=== PATIENT | female | born 1985 | race Caucasian/White ===

== ENCOUNTER 2018-03-28 04:08 | Inpatient (IN) | payer OTHER ==
[~2018-03-28] VITALS: Ht 157.5 cm; Wt 79.4 kg
[2018-03-28] VITALS (42 sets, daily range): BP systolic 92–220; BP diastolic 47–141
--- NOTE | 2018-03-28 04:20 | NUR ---
Pt to room 318. Gown on, UA obtained. 0427- Monitors applied. VE done. 8cm/100%/-1. FHT's 125, ctx, 2 min apart. 0438-IV started, pt states she is feeling like she needs to push. VE complete-BP 220/141, P 74. 0442-Dr. Howard here. Pt in stirrups and ready to push. FHT's 70-90's. 0445-pt pushing with ctx. FHT's 100's 0450-FHT's 100's. 0456-viable female born per spontaneous vaginal deliver. To mother's chest. See notes. 0458-Pitocin started 0557-placenta delivered. sent to pathology. 0559-Fentanyl 50mcg given IV for pain
[2018-03-28] MEDS ORDERED: LACTATED RINGERS 1,000 ML IV ONE (04:28)
[2018-03-28] MEDS ORDERED: D5 LR IV SOLUTION 1,000 ML IV SCH ×2 (04:37→08:48)
[2018-03-28] MEDS ORDERED: MINERAL OIL CONCENTRATE 99.9% 15 ML UDC TOP PRN (04:45)
[2018-03-28] MEDS ORDERED: OXYTOCIN/NORMAL SALINE 500 ML IV ONE ×3 (04:54→08:35)
[2018-03-28] MEDS ORDERED: LIDOCAINE/EPI 2% 1:200,00 (XYLOCAINE) 10 ML VIAL ONE (04:55)
[2018-03-28] MEDS ORDERED: fentaNYL INJECTION 100 MCG/2 ML AMP ONE ×2 (05:05→09:49)
--- NOTE | 2018-03-28 05:15 | NUR ---
Fundal massage done. Firm at umbilicus. Moderate amount of bleeding noted. No clots 0530-Fundas massaged. Firm. 0545-fundal massage done. Firm at umbilicus. Moderate amount of bleeding. No clots noted. 0600-Pt doing well. No complaints of pain. Fundus firm at umbilicus. 0620-Moderate amount of blood. No clots. Luz care done and pads changed. Fundus firm with massage 0650-Fundus firm. Bleeding slowed down.
[2018-03-28] MEDS ORDERED: CATHETER FLUSH 10 ML SYR IV SCH (06:00)
--- NOTE | 2018-03-28 06:21 | History & Physical-OB ---
OB - Chief Complaint & HPI Date/Time Date of Admission: Date of Admission: Mar 28, 2018 at 04:08 Date seen by a Provider: Mar 28, 2018 Time Seen by a Provider: 05:15 Chief Complaint/History OB-Reason for Admission/Chief: Onset of Labor Hx : 1 Hx Para: 0 Gestational Age in Weeks: 30 Gestational Age in Days: 0 Indication for induction: maternal distance Allergies and Home Medications Allergies Coded Allergies: No Known Drug Allergies (Unverified , 03/28/18) Patient Home Medication List Home Medication List Reviewed: Yes OB - History Hx of Present Care: Yes Ultrasounds: Normal mid trimester US Obstetrical Complications: None Medical Complications: None Patient Past Medical History healthy OB - Admission Exam Physical Exam HEENT: NCAT Heart: Rhythm Normal Lungs: Clear Abdomen: Gravid Extremities: Normal Reflexes: Normal Cervical Dilatation: 10cm Effacement: 100% Station: +3 Membranes: Intact Amniotic Fluid: Clear Heart Rate: 130's Accelerations: Accelerations Present Decelerations: Variable Decelerations Short Term Variability: Present Jail Variability: Average (6-25) Contractions on Admission: < 5 Minutes Apart Intensity: Firm OB - Assessment/Plan/Diagnosis Assessment Assessment: active labor Admission Dx normal labor Admission Status: Inpatient Order (span 2 midnights) Reason for Inpatient Admission: Active labor Plan Plan: Expectant Management Copy Copies To 1: CANDI PAUL MD; TAJ MORIN KATRINA M MD Mar 28, 2018 06:21
--- NOTE | 2018-03-28 06:24 | OB Labor & Delivery Record ---
Vag Delivery Note Vag Delivery Note Date of Delivery: 03/28/18 Preoperative Diagnosis: Alexus lui a (30 /Para / ,Gestational Age (wks)with [] Postoperative Diagnosis: Same Surgeon: CANDI PAUL Powerhouse Helper: [none] Anesthesia: [none] Delivery Type: [] Findings: [] Viable [famale] , apgars [9/9], weight [6 pounds 2 ounces] Lacerations: 2nd degree perineal episiotomy Intact placenta with 3 vessel cord. One nuchal cord. Estimated Blood Loss: [250] ml Complications: None Condition: Stable Description of Procedure: The patient is a 32 year old female who presented [for induction]. She was admitted and informed consent was obtained. Her labor course was remarkable for [being in active labor on arrival] She progressed to complete dilatation and began to push. She was then set up for delivery. The 's head was delivered atraumatically in the [OA] position. The shoulders and remainder of the infant' s body were then delivered without difficulty. Upon delivery, the head was held below the level of the perineum and the mouth and nares were bulb suctioned. The cord was doubly clamped and cut and the was placed on maternal abdomen. An intact placenta with 3-vessel cord delivered via David and there was found to be minimal bleeding.~ Vigorous fundal massage was performed and the fundus was found to be firm. IV oxytocin was given. Examination of the vagina and perineum revealed a [2nd degree] laceration repaired in the usual fashion with 3-0 vicryl suture. Following the repair, sponge, instrument and needle counts were correct. Mom and baby were both in stable condition in the labor suite. CANDI PAUL MD Mar 28, 2018 06:24
--- NOTE | 2018-03-28 07:15 | NUR ---
Report given to Estella SHEPHERD
--- NOTE | 2018-03-28 07:30 | NUR ---
To room with JOAO Ferrari. Fundus massaged. large amount of blood noted and constant trickle. Fundus firm at umbilicus. Egg size clot expressed. Continue to massage. Pt c/o nausea and blurry vision.
[2018-03-28 07:37] LABS: BASOPHILS % (AUTO) 0 % (0-10); EOSINOPHILS % (AUTO) 0 % (0-10); HEMATOCRIT 39 % (35-52); HEMOGLOBIN 12.8 G/DL (11.5-16.0); LYMPHOCYTES # (AUTO) 1.1 X 10^3 (1.0-4.0); LYMPHOCYTES % (AUTO) 5 % (12-44); MEAN CORPUSCULAR HEMOGLOBIN 27 PG (25-34); MEAN CORPUSCULAR HGB CONC 33 G/DL (32-36); MEAN CORPUSCULAR VOLUME 82 FL (80-99); MEAN PLATELET VOLUME 12.1 FL (7.4-10.4); MONOCYTES # (AUTO) 0.8 X 10^3 (0.0-1.0); MONOCYTES % (AUTO) 4 % (0-12); NEUTROPHILS # (AUTO) 20.5 X 10^3 (1.8-7.8); NEUTROPHILS % (AUTO) 91 % (42-75); PLATELET COUNT 189 10^3/uL (130-400); RED CELL DISTRIBUTION WIDTH 14.7 % (10.0-14.5); WHITE BLOOD COUNT 22.5 10^3/uL (4.3-11.0)
--- NOTE | 2018-03-28 07:42 | NUR ---
THIS RN CALLS DR MORIN WITH UPDATE PT REPORT. PT BP HIGH DURING RECOVERY. 190/106 , 189/108, 197/105. BPs HAVE BEEN IN THIS RANGE ENTIRE RECOVERY. PT CO BLURRED VISION AND NAUSEA. DR MORIN ASKED IF PT WAS IN PAIN. PT NOT IN PAIN OTHER THAN WHEN RN MASSAGES FUNDUS OCCASIONALLY. DR MORIN ORDERS TO DRAW LABS & GIVE 25 FENT
[2018-03-28] MEDS ORDERED: fentaNYL INJECTION 100 MCG/2 ML AMP IVP PRN (07:45)
--- NOTE | 2018-03-28 08:01 | NUR ---
DR MORIN AT BEDSIDE AT THIS TIME. THIS RN UPDATES DR MORIN ON PT BLEEDING, BP, S/S, LABS JUST DRAWN AND FENTANYL GIVEN ABOUT 3-4 MIN AGO. ORDERS PELVIC ULTRASOUND. MAY TAKE PT FOR POSSIBLE D&C FOR RETAINED PLACENTA. THIS RN SHOWS DR MORIN BLEEDING AND CLOT/S.
[2018-03-28 08:10] LABS: BASOPHILS % (AUTO) 0 % (0-10); EOSINOPHILS % (AUTO) 0 % (0-10); HEMATOCRIT 36 % (35-52); LYMPHOCYTES # (AUTO) 1.6 X 10^3 (1.0-4.0); LYMPHOCYTES % (AUTO) 7 % (12-44); MEAN CORPUSCULAR HEMOGLOBIN 27 PG (25-34); MEAN CORPUSCULAR HGB CONC 33 G/DL (32-36); MEAN CORPUSCULAR VOLUME 81 FL (80-99); MEAN PLATELET VOLUME 11.1 FL (7.4-10.4); MONOCYTES # (AUTO) 1.3 X 10^3 (0.0-1.0); MONOCYTES % (AUTO) 6 % (0-12); NEUTROPHILS # (AUTO) 18.7 X 10^3 (1.8-7.8); NEUTROPHILS % (AUTO) 87 % (42-75); PLATELET COUNT 184 10^3/uL (130-400); RED CELL DISTRIBUTION WIDTH 14.5 % (10.0-14.5); WHITE BLOOD COUNT 21.6 10^3/uL (4.3-11.0)
--- NOTE | 2018-03-28 08:13 | Progress Note-Standard ---
Standard Progress Note Progress Notes/Assess & Plan Date Seen by a Provider: Mar 28, 2018 Time Seen by a Provider: 08:05 Progress/Assessment & Plan I was called to see Ms. Haley for elevated blood pressure and blurred vision. Ms. Haley delivered early today, seeming unremarkable, but there was a question about some difficulty with placenta delivery. Upon seeing Ms. Haley, her blood pressure remained elevated, some moderate bleeding continued. I will check a CMP, CBC, and Uric Acid. Also, I ordered a pelvic ultrasound to ascertain if there are any products of conception or retained placenta within the uterine cavity. She was given Fentanyl for pain control and possibly lowering blood pressure. If the uterus isn't completely evacuated, we will perform a D & C. Dr. Domingo Final Diagnosis IUP at 39 weeks Vaginal Delivery Elevated Blood Pressure Blurred Vision TAJ DOMINGO DO Mar 28, 2018 08:13
[2018-03-28] MEDS ORDERED: WITCH HAZEL(TUCKS) 40 EA JAR TOP PRN (08:15)
[2018-03-28] MEDS ORDERED: TETANUS,DIPTH,PERTUSS P/F (BOOSTRIX) 0.5 ML VIAL IM ONE (08:15)
[2018-03-28] MEDS ORDERED: oxyCODONE/APAP 5/325MG (PERCOCET 5) TABLET PO PRN (08:15)
[2018-03-28] MEDS ORDERED: BENZOCAINE/MENTHOL (DERMOPLAST) 56 ML CAN TP PRN (08:15)
[2018-03-28] MEDS ORDERED: MEASLES,MUMPS,RUBELLA 1 EA INJ SQ ONE (08:15)
[2018-03-28 08:30] LABS: ALANINE AMINOTRANSFERASE 135 U/L (0-55); ALBUMIN 2.9 GM/DL (3.2-4.5); ALKALINE PHOSPHATASE 143 U/L (40-136); BILIRUBIN,TOTAL 0.9 MG/DL (0.1-1.0); BUN/CREATININE RATIO 10; CALCIUM 8.5 MG/DL (8.5-10.1); CARBON DIOXIDE 19 MMOL/L (21-32); CHLORIDE 107 MMOL/L (98-107); CREATININE SERUM 0.92 MG/DL (0.60-1.30); GFR ESTIMATED > 60; GLUCOSE 92 MG/DL (70-105); POTASSIUM 4.3 MMOL/L (3.6-5.0); SODIUM 134 MMOL/L (135-145); TOTAL PROTEIN 5.9 GM/DL (6.4-8.2); URIC ACID 6.1 MG/DL (2.6-7.2)
[2018-03-28 08:30] LABS: BAND NEUTROPHILS 0 %; BASOPHILS % (MANUAL) 0 %; EOSINOPHILS % (MANUAL) 0 %; LYMPHOCYTES % (MANUAL) 2 %; MONOCYTES % (MANUAL) 3 %; NEUTROPHILS % (MANUAL) 95 %; RBC MORPH NORMAL
--- NOTE | 2018-03-28 08:30 | NUR ---
THIS RN UPDATES DR HALLS ON PT BP, S/S, BLEEDING. DR HALLS ORDERS TO GIVE HYDRALAZINE
[2018-03-28] MEDS: hydrALAZINE (APESOLINE) 20 MG/ML VIAL IV PRN ×3 (08:42→09:04)
--- NOTE | 2018-03-28 08:45 | NUR ---
DR HALLS ORDERS RN TO START PT ON MAG DRIP.
--- NOTE | 2018-03-28 08:51 | Diagnostic Imaging Report ---
INDICATION: Patient is status post delivery approximately 4 hours ago. Study is performed to evaluate for retained products. FINDINGS: Uterus is post gravid measuring 20.0 x 12.9 x 11.0 cm. There is significant thickening and heterogeneity to the endometrium measuring up to 4.4 cm. No definite vascularity is present. There is a 3.4 cm fibroid in the posterior uterus. Ovaries are not visualized. There is no free fluid detected. IMPRESSION: Thickened, heterogeneous endometrium without vascularity. No definite vascularized retained products of conception are seen. Findings may be secondary to blood products. Dictated by: Dictated on workstation # [id number]
[2018-03-28] MEDS ORDERED: fentaNYL INJECTION 100 MCG/2 ML AMP IV ONE (08:58)
[2018-03-28] MEDS ORDERED: CALCIUM GLUC. 10% 4.65 MEQ/10 ML VIAL IV PRN (09:00)
[2018-03-28] MEDS ORDERED: MAGNESIUM 4 GM/100 ML IVPB 100 ML IV SCH (09:00)
--- NOTE | 2018-03-28 09:02 | NUR ---
THIS RN CALLS DR MORIN WITH UPDATED PT REPORT. 2 DOES OF HYDRALAZINE GIVEN. CURRENT BP. ORDER TO GIVE A 3RD DOSE AT THIS TIME. UPDATE DR ON BLEEDING.
[2018-03-28] MEDS ORDERED: MAGNESIUM 2 GM/50 ML IVPB 50 ML IV ONE ×2 (09:03→09:35)
[2018-03-28] MEDS: OXYTOCIN/NORMAL SALINE 500 ML IV SCH ×2 (09:05→12:30)
[2018-03-28] MEDS ORDERED: ONDANSETRON 4 MG/2 ML (SDV) Z0FRAN ONE (09:11)
[2018-03-28] MEDS: MAGNESIUM SULFATE DRIP 500 ML IV SCH ×3 (09:13→20:06)
[2018-03-28] MEDS ORDERED: ONDANSETRON 4 MG/2 ML (SDV) Z0FRAN IVP PRN ×2 (09:20→11:45)
--- NOTE | 2018-03-28 09:20 | NUR ---
PT CO NAUSEA & CHILLS. PT VISUALLY SHAKING. BLEEDING REASSESSED. FUNDUS FIRM & MIDLINE BUT WITH LARGE GUSH OF BLOOD AND STEADY TRICKLE. PADS WEIGHED TOTAL AT THIS TIME APPROX 1,245 ML.
--- NOTE | 2018-03-28 09:30 | NUR ---
THIS RN CALLS DR MORIN WITH UPDATED PT REPORT. PT S/S CO NAUSEA, CHILLS, SHAKING, BLEEDING DESCRIPTION. EST BLOOD LOSS SINCE DELIVERY IS 1,[address] MORIN ORDERS 2 UNITS CROSSMATCHED AND MIRA ALL OR TO SCHEDULE D&C PROCEDURE ALETHA. THIS RN WILL PREP PT, START 2ND IV FOR OR.
[2018-03-28] MEDS: LACTATED RINGERS 1,000 ML IV PRN ×3 (10:00→11:25)
--- NOTE | 2018-03-28 10:00 | NUR ---
OR STAFF AND DR MORIN AT PT BEDSIDE. PT TAKEN TO OR AT THIS TIME FOR D&C PROCEDURE. FOB AND BABY IN NURSERY. FOB/SO AWARE OF SITUATION AND PLAN.
[2018-03-28] MEDS ORDERED: FLU QUADRIvalent (5+ YOA) 2018-2019 (AFLURIA) 0.5 ML IM ONE (10:15)
[2018-03-28] MEDS ORDERED: BUPIVACAINE SPINAL 0.75% (SENSORCAINE) 2 ML AMP ONE (10:16)
[2018-03-28] MEDS ORDERED: LIDOCAINE PF 2% 5 ML (XYLOCAINE) VIAL ONE (10:16)
[2018-03-28] MEDS ORDERED: OXYTOCIN (PITOCIN) 10 UNIT/ML VIAL ONE (10:44)
--- NOTE | 2018-03-28 11:25 | Progress Note-Pre Operative ---
Pre-Operative Progress Note H&P Reviewed The H&P was reviewed, patient examined and no changes noted. Date Seen by Provider: Mar 28, 2018 Time Seen by Provider: 10:35 Date H&P Reviewed: Mar 28, 2018 Time H&P Reviewed: 08:30 Pre-Operative Diagnosis: Hemorrhage TAJ MORIN DO Mar 28, 2018 11:24
--- NOTE | 2018-03-28 11:33 | Operative Report ---
Operative Report Date of Procedure/Surgery Mar 28, 2018 Surgeon (s) TAJ MORIN DO Defensive Fire Control Systems Operator (s): None Post-Operative Diagnosis Hemorrhage Procedure Performed Dilation and Curettage Repair of Cervical Laceration Description of Procedure Anesthesia Type: Spinal Estimated blood loss (mL): 800 Specimen(s) collected/removed Products of conception, portion of cervix Packing: Vaginal packing Description of the Procedure Ms. Haley was taken to the Operating Room with IV fluids running. Once in the OR, a timeout was performed, everyone was in agreement. Spinal anesthesia was administered without complication. She was placed in the dorsal lithotomy position, prepped and draped in the normal sterile fashion. A Varela Catheter was inserted without complications. A bivalve speculum was inserted, the anterior lip of the cervix was grasped with a single tooth tenaculum. Moderate amount of blood was noted extruding from the cervix. Utilizing a large curette the uterus was evacuated, followed by a suction curette. A moderate amount of blood continued to trickle. It was noted that she had two cervical laceration-- one on the left and one on the right. Utilizing a 2-0 Vicryl a running locked suture was placed, which controlled the bleeding from the cervix. Vaginal packing was placed. Sponge, instruments and needle counts were correct times 3. She was taken to the recovery room in stable condition where follow up orders and pain management were instituted. Findings of the Procedure Small amount of products of conception were discovered in the uterine cavity. Two lacerations of the cervix were noted and repaired Allergies and Home Medications Allergies Coded Allergies: No Known Drug Allergies (Unverified , 03/28/18) Patient Home Medication List Home Medication List Reviewed: Yes TAJ MORIN DO Mar 28, 2018 11:33
[2018-03-28] MEDS ORDERED: HYDROmorphone 2 MG/ML VIAL (DILAUDID) IV ONE (11:45)
[2018-03-28 12:22] LABS: HEMOGLOBIN 9.5 G/DL (11.5-16.0)
--- NOTE | 2018-03-28 12:30 | NUR ---
report received from mahesh rodriguez rn from recovery. pt on at this time.
--- NOTE | 2018-03-28 13:00 | NUR ---
THIS RN DOES HOURLY PHYSICAL ASSESSMENT WHILE PT ON MAG. URINE OUTPUT 30ML, VSS, DENIES S/S OF HYPERMAGNESIA, DENIES PAIN, 3+ PITTING EDEMA IN FEET BILAT, 2+ PITTING EDEMA IN LOWER LEGS BILAT. LUNGS CLEAR. PT DENIES NEEDS AT THIS TIME. CALL LIGHT WITHIN REACH.
--- NOTE | 2018-03-28 13:08 | NUR ---
this rn calls dr garcia to discuss plan of pt care. dr will continue magnesium for a total of 24hrs. will dc tomorrow 03/[address] russell will come to pp after clinic to remove vag packing and pt assessment. rn gives h&h lab results. dr garcia verbalizes understanding. current bp 145/95, hr 91. no new orders at this time.
--- NOTE | 2018-03-28 15:00 | NUR ---
THIS RN DOES HOURLY PHYSICAL ASSESSMENT WHILE PT ON MAG. URINE OUTPUT 30ML, VSS, DENIES S/S OF HYPERMAGNESIA, DENIES PAIN, 3+ PITTING EDEMA IN FEET BILAT, 2+ PITTING EDEMA IN LOWER LEGS BILAT. LUNGS CLEAR. JOAO CALVO SENT IN TO ASSIST PT WITH . VISITORS ASKED TO STEP OUT. PT DENIES NEEDS AT THIS TIME. CALL LIGHT WITHIN REACH.
--- NOTE | 2018-03-28 16:05 | NUR ---
THIS RN DOES HOURLY PHYSICAL ASSESSMENT WHILE PT ON MAG. URINE OUTPUT 55ML, VSS, DENIES S/S OF HYPERMAGNESIA, DENIES PAIN, 3+ PITTING EDEMA IN FEET BILAT, 2+ PITTING EDEMA IN LOWER LEGS BILAT. LUNGS CLEAR BILAT. PAD CHANGED, PERICARE BY THIS RN. 1 VPAD SATURATED SINCE SURGERY (1230). ICE WATER REFILLED. PT DENIES NEEDS AT THIS TIME. CALL LIGHT WITHIN REACH.
--- NOTE | 2018-03-28 16:30 | NUR ---
DR MORIN ON PP TO SEE PT. THIS NR GIVES DR MORIN UPDATED REPORT. VPAD CHANGED. VPAD SATURATED WITH BLOOD FROM [address] MORIN HAS DECIDED TO LEAVE VAGINAL PACKING IN UNTIL TOMORROW AM. RN UPDATES DR MORIN ON CURRENT VS, URINE OUTPUT, PT DENIES PAIN OR CONCERNING S/S. PT MAY EAT REGULAR DIET AT THIS TIME. THIS RN ASKS DR MORIN ABOUT GIVING MOTRIN WITH PT BLEEDING AMOUNT. DR MORIN OK WITH MOTRIN ADMIN. DR MORIN ORDERS TO DRAW CBC, CMP, URIC ACID TOMORROW AM AT 0500. DR MORIN MADE AWARE OF TOTAL IV INTAKE ABOUT 5L OF IV FLUID TODAY SINCE DELIVERY.
--- NOTE | 2018-03-28 17:00 | NUR ---
THIS RN DOES HOURLY PHYSICAL ASSESSMENT WHILE PT ON MAG. URINE OUTPUT 45 ML, VSS, DENIES S/S OF HYPERMAGNESIA, DENIES PAIN, 3+ PITTING EDEMA IN FEET BILAT, 2+ PITTING EDEMA IN LOWER LEGS BILAT. LUNGS CLEAR BILAT. PT DENIES NEEDS AT THIS TIME. CALL LIGHT WITHIN REACH.
--- NOTE | 2018-03-28 17:16 | NUR ---
THIS RN CALLS DR MORIN WITH UPDATE PT REPORT. PT ATTEMPT TO EAT REGULAR DIET. PT THREW UP, WHILE THROWING UP, PT PUSHED OUT ABOUT HALF OF VAG PACKING. DR MORIN OKAYS RN TO DC REMAINING VAG PACKING AT THIS TIME. RN DESCRIBES AMOUNT OF BLEEDING ON VPAD AND VAG PACKING, WITH GOLF BALL SIZED CLOT. NO NEW ORDERS AT THIS TIME. THIS RN DOES PT PERICARE, CHANGES PAD AND LINENS. AT THIS TIME.
--- NOTE | 2018-03-28 18:00 | NUR ---
THIS RN DOES HOURLY PHYSICAL ASSESSMENT WHILE PT ON MAG. URINE OUTPUT 100 ML, VSS, DENIES S/S OF HYPERMAGNESIA, DENIES PAIN, 3+ PITTING EDEMA IN FEET BILAT, 2+ PITTING EDEMA IN LOWER LEGS BILAT. LUNGS CLEAR BILAT. PT DENIES NEEDS AT THIS TIME. CALL LIGHT WITHIN REACH. PT CURRENTLY WITHOUT ISSUES.
--- NOTE | 2018-03-28 19:01 | NUR ---
THIS RN DOES HOURLY PHYSICAL ASSESSMENT WHILE PT ON MAG. URINE OUTPUT 50 ML, VSS, DENIES S/S OF HYPERMAGNESIA, DENIES PAIN, 3+ PITTING EDEMA IN FEET BILAT, 2+ PITTING EDEMA IN LOWER LEGS BILAT. LUNGS CLEAR BILAT. PT DENIES NEEDS AT THIS TIME. CALL LIGHT WITHIN REACH.
--- NOTE | 2018-03-28 20:30 | NUR ---
PM and mag assessment completed at this time. VSS, lungs clears bilat, urine output adequate, DTR diminished. No complaints voiced at this time. Blue raymond and pink pad changed and pericare provided at this time. FFU/2, moderate bleeding without clots noted. Pads weighed and EBL 165ml.
[2018-03-28] MEDS: DOCUSATE SODIUM 100 MG (COLACE) CAP PO SCH (20:39)
--- NOTE | 2018-03-28 21:00 | NUR ---
mag assessment completed at this time. VSS, lungs clears bilat, urine output adequate, DTR diminished. No complaints voiced at this time.
--- NOTE | 2018-03-28 22:00 | NUR ---
mag assessment completed at this time. VSS, lungs clears bilat, urine output adequate, DTR diminished. No complaints voiced at this time.
--- NOTE | 2018-03-28 23:00 | NUR ---
mag assessment completed at this time. VSS, lungs clears bilat, urine output adequate, DTR diminished. No complaints voiced at this time. [place] pad changed and pericare provided at this time. Light bleeding without clots noted. Pads weighed and EBL 40ml.
[2018-03-29] VITALS (11 sets, daily range): BP systolic 111–144; BP diastolic 64–81
--- NOTE | 2018-03-29 | NUR ---
mag assessment completed at this time. VSS, lungs clears bilat, urine output adequate, DTR diminished on right side, +2 on left side. Jello and sprite provided per pt. request.
--- NOTE | 2018-03-29 00:45 | NUR ---
Episode of emesis noted. Pt. states she feels better now. No antiemetic given.
[2018-03-29] MEDS: FERROUS SULF 325 MG (IRON) TAB PO SCH ×2 (01:07→08:15)
[2018-03-29] MEDS: DOCUSATE SODIUM 100 MG (COLACE) CAP PO SCH ×2 (01:08→08:15)
[2018-03-29] MEDS: CATHETER FLUSH 10 ML SYR IV SCH ×2 (01:08→05:42)
--- NOTE | 2018-03-29 02:00 | NUR ---
mag assessment completed at this time. VSS, lungs clears bilat, urine output adequate, DTR diminished. Bag of LR infused/completed at 0205 from previous shift. New bag of [id number] hung at 0206. No complaints voiced by pt. at this time.
--- NOTE | 2018-03-29 03:00 | NUR ---
mag assessment completed at this time. VSS, lungs clears bilat, urine output adequate, DTR diminished. No complaints voiced at this time.
--- NOTE | 2018-03-29 04:00 | NUR ---
mag assessment completed at this time. VSS, lungs clears bilat, urine output adequate, DTR diminished. No complaints voiced at this time.
--- NOTE | 2018-03-29 05:00 | NUR ---
mag assessment completed at this time. VSS, lungs clears bilat, urine output adequate, DTR diminished. No complaints voiced at this time.
[2018-03-29] MEDS: MAGNESIUM SULFATE DRIP 500 ML IV SCH (05:43)
--- NOTE | 2018-03-29 06:00 | NUR ---
mag assessment completed at this time. VSS, lungs clears bilat, urine output adequate, DTR diminished. No complaints voiced at this time.
--- NOTE | 2018-03-29 06:25 | NUR ---
DR. MORIN HERE TO DISCUSS POC WITH PT. ORDERS RECEIVED TO PUNEET MOHAMUD, ROBERT, AND SANJUANA AT THIS TIME.
--- NOTE | 2018-03-29 06:32 | Discharge Inst-Women's Service ---
Discharge Inst-Women's Serv Depart Medication/Instructions New, Converted or Re-Newed RX: RX Given to Pt/Family Instructions Pelvic rest, no heavy lifting, no strenuous activities, return to office in one week Final Diagnosis Intrauterine at 39 weeks Precipitous Delivery Gestational Hypertension Preeclampsia (Severe) Retained Products of Conception Cervical Laceration Activity Activity: Activity as Tolerated Driving Instructions: No Driving for 1 Week NO SMOKING: NO SMOKING Nothing Inside Vagina: No Douching, No [place], No Tampons Diet Discharge Diet: No Restrictions Symptoms to Report to : Bleeding Excessive, Pain Increased, Fever Over 101 Degrees F, Vaginal Bleeding Increase For Any Problems or Questions: Contact Your Physician Skin/Wound Care Infection Signs and Symptoms: Foul Odor of Wound, Temperature Above 101 F Bathing Instructions: TAJ Hernandez DO Mar 29, 2018 06:32
[2018-03-29] MEDS ORDERED: DOCU100C37 PO (06:41)
[2018-03-29] MEDS ORDERED: OXYC1TAB87 PO (06:41)
[2018-03-29] MEDS ORDERED: IBUP-1780 PO (06:41)
[2018-03-29] MEDS ORDERED: DOXY100C2 PO (06:41)
--- NOTE | 2018-03-29 06:50 | OB Labor & Delivery Record ---
L&D History Date of Service Date of Service: Mar 28, 2018 History Expected Date of Delivery: Apr 04, 2018 Gestational Age in Weeks: 39 Hx : 1 Hx Para: 1 Complications Events: Induced HTN, Pre-Eclampsia ( Hemorrhage; Cervical Lacertion. Ms Haley was taken to surgery where I performed a D & C and suture her cervical lacerations.) Ms. Haley had hemorrhage that required surgical intervention--D & C and cervical laceration repairs Operative Indications (Cesarea: N/A-Vaginal Delivery Intrapartal Events: Bleeding (Ms. Haley had hemorrhage, which may be due to her preciptious delivery) L&D Stage1 Monitors and Tracing Vital Signs VS - Last 72 Hours, by Label 03/28/18 03/28/18 03/28/18 03/28/18 04:45 04:50 05:05 05:15 Pulse 74 62 93 103 B/P (MAP) 220/141 (167) 217/102 (140) 189/89 (122) 144/93 (110) 03/28/18 03/28/18 03/28/18 03/28/18 05:30 05:45 06:00 06:32 Pulse 103 94 90 78 B/P (MAP) 153/95 (114) 155/97 (116) 201/113 (142) 212/109 (143) O2 Flow Rate 97.00 03/28/18 03/28/18 03/28/18 03/28/18 06:34 06:53 07:20 07:22 Temp 97.6 Pulse 71 65 67 62 Resp 18 B/P (MAP) 196/101 (132) 219/110 (146) 197/105 (135) 189/108 (135) O2 Delivery Room Air Room Air 03/28/18 03/28/18 03/28/18 03/28/18 07:35 07:45 07:50 08:00 Pulse 66 70 70 66 B/P (MAP) 190/106 (134) 193/112 (139) 197/112 (140) 197/114 (141) O2 Delivery Room Air Room Air Room Air Room Air 03/28/18 03/28/18 03/28/18 03/28/18 08:05 08:20 08:35 08:49 Pulse 64 62 63 68 Resp 18 B/P (MAP) 188/109 (135) 195/112 (139) 181/104 (129) 182/104 (130) Pulse Ox 99 100 O2 Delivery Room Air Room Air Room Air Room Air 03/28/18 03/28/18 03/28/18 03/28/18 08:52 08:59 09:09 09:14 Pulse 71 70 78 74 B/P (MAP) 170/100 (123) 178/100 (126) 165/91 (115) 140/92 (108) Pulse Ox 99 100 100 100 O2 Delivery Room Air Room Air Room Air Room Air 03/28/18 03/28/18 03/28/18 03/28/18 09:19 09:24 09:29 09:34 Pulse 78 92 82 81 B/P (MAP) 130/88 (102) 147/81 (103) 151/83 (105) 151/84 (106) Pulse Ox 100 100 99 99 O2 Delivery Room Air Room Air Room Air Room Air 03/28/18 03/28/18 03/28/18 03/28/18 09:38 09:39 13:00 13:00 Temp 98.5 Pulse 85 96 91 91 Resp 16 16 B/P (MAP) 152/81 (104) 166/84 (111) 145/95 (112) Pulse Ox 99 99 99 O2 Delivery Room Air Room Air Room Air 03/28/18 03/28/18 03/28/18 03/28/18 14:00 14:00 15:00 15:00 Pulse 89 89 89 89 Resp 16 16 16 16 B/P (MAP) 125/93 (104) 141/98 (112) Pulse Ox 98 99 O2 Delivery Room Air Room Air 03/28/18 03/28/18 03/28/18 03/28/18 16:00 16:00 17:00 17:00 Temp 98.5 Pulse 86 86 81 81 Resp 16 16 16 B/P (MAP) 146/92 (110) 155/96 (115) Pulse Ox 99 100 O2 Delivery Room Air Room Air 03/28/18 03/28/18 03/28/18 03/28/18 18:00 18:00 19:00 19:00 Temp 98.5 98.4 Pulse 103 103 96 96 Resp 16 16 16 16 B/P (MAP) 137/84 (101) 133/86 (102) Pulse Ox 98 100 O2 Delivery Room Air Room Air 03/28/18 03/28/18 03/28/18 03/28/18 20:00 20:30 21:00 21:00 Temp 98.1 Pulse 90 90 96 96 Resp 16 16 16 16 B/P (MAP) 138/82 (100) 116/70 (85) Pulse Ox 99 99 O2 Delivery Room Air Room Air 03/28/18 03/28/18 03/28/18 03/28/18 21:31 22:00 22:00 23:00 Pulse 96 78 76 Resp 16 16 16 B/P (MAP) 92/47 (62) Pulse Ox 99 O2 Delivery Room Air Room Air 03/28/18 03/29/18 03/29/18 03/29/18 23:00 00:00 00:12 01:00 Pulse 76 87 76 Resp 16 16 16 16 B/P (MAP) 110/58 (75) 125/73 (90) Pulse Ox 99 98 O2 Delivery Room Air Room Air 03/29/18 03/29/18 03/29/18 03/29/18 01:00 02:00 02:00 03:00 Pulse 76 87 87 84 Resp 16 14 14 14 B/P (MAP) 111/68 (82) 115/65 (82) Pulse Ox 98 98 O2 Delivery Room Air Room Air 03/29/18 03/29/18 03/29/18 03:00 04:00 04:00 Pulse 84 83 83 Resp 14 16 16 B/P (MAP) 111/66 (81) 116/64 (81) Pulse Ox 98 95 O2 Delivery Room Air Room Air Fundal Ht/Cervical Dilatation Uterus Position: -2 L&D Stage3 Placenta Delivery Placenta Delivery: Manual Delivery Summary Summary Total Labor Time See nursing notes Estimated blood loss (mL): Bleeding approximately 1200 ml Bleeding required a D & C and cervical laceration repairs Attending at delivery: Dr. Howard Condition of Delivery Examined: Cervix Examined, Uterus Explored Post Hemorrhage: Yes Intervention Required Yes, D & C and Cervical Laceration repair Condition of Mother Ms. Haley became pre-eclamptic after delivery (elevated blood pressures 190/100' s with elevated liver enzymes. She was placed on Magnesium Sulfate and taken to surgery. Postoperatively, blood pressures settled into normal range (110/70' s). Her labs, at the time of this note, are pending. Condition of Infant (s) Healthy, viable SEALS,TAJ Bernal DO Mar 29, 2018 06:50
[2018-03-29 06:51] LABS: BASOPHILS % (AUTO) 0 % (0-10); EOSINOPHILS % (AUTO) 0 % (0-10); LYMPHOCYTES # (AUTO) 2.6 X 10^3 (1.0-4.0); LYMPHOCYTES % (AUTO) 15 % (12-44); MEAN CORPUSCULAR HEMOGLOBIN 27 PG (25-34); MEAN CORPUSCULAR HGB CONC 33 G/DL (32-36); MEAN CORPUSCULAR VOLUME 82 FL (80-99); MEAN PLATELET VOLUME 11.4 FL (7.4-10.4); MONOCYTES % (AUTO) 6 % (0-12); NEUTROPHILS # (AUTO) 13.6 X 10^3 (1.8-7.8); NEUTROPHILS % (AUTO) 79 % (42-75); PLATELET COUNT 89 10^3/uL (130-400); RED CELL DISTRIBUTION WIDTH 15.1 % (10.0-14.5); WHITE BLOOD COUNT 17.3 10^3/uL (4.3-11.0)
[2018-03-29 06:57] LABS: HEMATOCRIT 17 % (35-52); HEMOGLOBIN 5.5 G/DL (11.5-16.0)
--- NOTE | 2018-03-29 06:57 | NUR ---
LAB CALLED TO REPORT CRITICAL LOW HGB AND HCT. THIS RN VERBALLY REPORTED LABS TO DR MORIN. ORDERS RECEIVED TO TRANSFUSE 2UNITS OF BLOOD.
[2018-03-29 07:25] LABS: ALBUMIN 2.3 GM/DL (3.2-4.5); BILIRUBIN,TOTAL 0.3 MG/DL (0.1-1.0); CALCIUM 8.2 MG/DL (8.5-10.1); CREATININE SERUM 1.68 MG/DL (0.60-1.30); POTASSIUM 4.9 MMOL/L (3.6-5.0); TOTAL PROTEIN 4.3 GM/DL (6.4-8.2); URIC ACID 6.8 MG/DL (2.6-7.2)
--- NOTE | 2018-03-29 07:53 | Anesthesia-Regional Post-Op ---
Regional Patient Condition Mental Status: Alert, Oriented x3 Circulation: Same as Pre-Op Headache: Absent Sensation: Full Recovery Motor Block: Absent Post Op Complications Complications None Follow Up Care/Instructions Patient Instructions None needed. Anesthesia/Patient Condition Patient is doing well, no complaints, stable vital signs, no apparent adverse anesthesia problems. No complications reported per nursing. KELVIN ASTUDILLO CRNA Mar 29, 2018 07:53
[2018-03-29] MEDS ORDERED: IBUPROFEN 800 MG (MOTRIN) TAB PO SCH (08:15)
[2018-03-29] MEDS ORDERED: NS IV 500 ML 500 ML ONE (10:05)
--- NOTE | 2018-03-29 11:00 | NUR ---
PRBC's unit #W [id number] given from [id number] without reaction or symptoms. 1130 Up to BR with assist of 2. Slightly dizzy but tolerated activity well. Moderate rubra flow. Breast feeding going well. S.O. at bedside and very supportive. PRBC's unit # W [id number] initiated @ 1323. Pt states she feels less lightheaded. [address] Domingo regarding order for Hg. He will obtain Hg/Hct at office in 1 week. Plan for discharge later in day. Baby to remain in hospital, mom to be in hospitality room. Procedure explained to mom.
[2018-03-29] MEDS ORDERED: TETANUS,DIPTH,PERTUSS P/F (BOOSTRIX) 0.5 ML VIAL IM ONE (14:53)
--- NOTE | 2018-03-29 19:07 | NUR ---
Discharge instructions given to mom. Infant to stay inpatient until tomorrow. Verbalizes understanding. Stork meal done. Tdap given this shift. Boarder mom.
--- NOTE | 2018-04-06 13:42 | Physician Query-Anemia ---
Physician Query-Anemia Query to Physician: Provider's Document Request-Please contact clinical research director listed on document for more information. Dear Provider, In cases where a patient has anemia and blood loss, the quality lead can never assume a cause and effect relationship. Please document the type of the anemia, if known, on this form as an addendum: *Please exercise your independent, professional judgement when responding. A specific answer is not anticipated or expected. Based on a review/Patient has: Hgb/Hct: 03/28 Hgb 9.5 Hct 29 03/29 Hgb 5.5 Hct 17 Estimated blood loss (mL): 1450 Transfusion: No Type of anemia, if known: Anemia due to: acute blood loss If you have questions please contact: Refinisher: Ext: Thank you for your time and cooperation. Clinical Pot Feeder/Refinisher This is a permanent part of the medical record YUMIKO LOMBARDI Apr 06, 2018 13:42 CANDI PAUL MD Apr 07, 2018 08:31
== END 2018-03-29 19:19 | disposition home or self-care (01) | DRG 768 ==
LOC: LDRP 04:08
PROVIDERS: ADMIT Obstetrics & Gynecology; ATTEND Obstetrics & Gynecology
PROC: 0KQM0ZZ Repair Perineum Muscle, Open Approach (ICD-10-PCS; 2018-03-28)
PROC: 0UQC7ZZ Repair Cervix, Via Natural or Artificial Opening (ICD-10-PCS; 2018-03-28)
PROC: 10D17ZZ Extraction of Products of Conception, Retained, Via Natural or Artificial Opening (ICD-10-PCS; 2018-03-28)
PROC: 10E0XZZ Delivery of Products of Conception, External Approach (ICD-10-PCS; principal; 2018-03-28 08:30)
DX: O70.1 Second degree perineal laceration during delivery (principal); O72.2 Delayed and secondary postpartum hemorrhage; O14.94 Unspecified pre-eclampsia, complicating childbirth; O62.3 Precipitate labor; O90.81 Anemia of the puerperium; D62 Acute posthemorrhagic anemia; Z3A.39 39 weeks gestation of pregnancy; Z37.0 Single live birth
CPT/HCPCS: 36415; 76857; 80053; 83735; 84550; 85007; 85014; 85018; 85025; 85027; 86850; 86900; 86901; 86920; 88305; 88307; 90715; 94664

== ENCOUNTER 2020-11-29 18:11 | Emergency (ER) | payer SELFPAY ==
[~2020-11-29] VITALS: Ht 157.5 cm; Wt 69.4 kg
[~2020-11-29 18:11] MED LIST: DOCU100C37 PO; DOXY100C5 PO; IBUP-1780 PO; OXYC1TAB87 PO
--- NOTE | 2020-11-29 18:23 | ED General ---
General Stated Complaint: RT SIDE LOWER ABD PAIN Source of Information: Patient Exam Limitations: No Limitations History of Present Illness Date Seen by Provider: Nov 29, 2020 Time Seen by Provider: 18:23 Initial Comments Patient is a 34-year-old female who presents with right lower pelvic pain upon waking this morning. Pain is described as dull continuous waxes and wanes and is nonradiating. Is worse with palpation but not movement. No urinary frequency urgency dysuria. No vaginal discharge, bleeding, flank pain. Patient has an IUD in place and has irregular her light menstrual periods. No abdominal surgeries. Timing/Duration: 4-6 Hours Severity: Moderate Modifying Factors: improves with Other Associated Systoms: Other Allergies and Home Medications Allergies Coded Allergies: No Known Drug Allergies (Unverified , 03/28/18) Patient Home Medication List Home Medication List Reviewed: Yes Docusate Sodium (Docusate Sodium) 100 Mg Capsule, 100 MG PO BID Prescribed by: TAJ DOMINGO on 03/29/18 06 Doxycycline Hyclate (Doxycycline Hyclate) 100 Mg Capsule, 100 MG PO BID Prescribed by: TAJ DOMINGO on 03/29/18 0641 Ibuprofen (Ibuprofen) 800 Mg Tablet, 800 MG PO Q8H Prescribed by: TAJ HALLS on 03/29/18 0641 Oxycodone HCl/Acetaminophen (Percocet 5-325 mg Tablet) 1 Each Tablet, 1 TAB PO Q6H PRN for PAIN-MODERATE Prescribed by: TAJ DOMINGO on 03/29/18 0641 Review of Systems Review of Systems Constitutional: see HPI EENTM: see HPI Respiratory: see HPI Cardiovascular: see HPI Gastrointestinal: see HPI Musculoskeletal: see HPI Skin: see HPI Psychiatric/Neurological: See HPI Hematologic/Lymphatic: See HPI Immunological/Allergic: see HPI Past Yulpelo-Gedodj-Gtdaly Hx Patient Social History Tobacco Use?: Yes Immunizations Up To Date PED Vaccines UTD: No Seasonal Allergies Seasonal Allergies: No Past Medical History Surgeries: No Respiratory: No Cardiac: No Neurological: No Genitourinary: No Gastrointestinal: No Musculoskeletal: No Endocrine: No HEENT: No Cancer: No Psychosocial: No Blood Disorders: No Adverse Reaction/Blood Tranf: No Physical Exam Vital Signs Vital Signs - First Documented 11/29/20 18:17 Temp 37.0 Pulse 90 Resp 17 B/P (MAP) 135/103 (114) O2 Delivery Room Air Capillary Refill : Height, Weight, BMI Height: 5'2.00" Weight: 175lbs. 0.0oz. [id number]; 32.0 BMI Method: General Appearance: Anxious, Obese Eyes: Bilateral Eye Normal Inspection, Bilateral Eye PERRL, Bilateral Eye EOMI HEENT: PERRL/EOMI Gastrointestinal: Soft, Tenderness (Right lower quadrant pain/tenderness. No rebound rigidity or guarding) Genital/Rectal: Other (Deferred) Neurologic/Psychiatric: Alert, Oriented x3, No Motor/Sensory Deficits Focused Exam Sepsis Stage: Ruled Out Progress/Results/Core Measures Suspected Sepsis SIRS Temperature: Pulse: Respiratory Rate: Laboratory Tests 11/29/20 18:25: White Blood Count 10.3 Blood Pressure / Mean: Laboratory Tests 11/29/20 18:25: Creatinine 0.74, Platelet Count 268, Total Bilirubin 0.2 Results/Orders Lab Results Laboratory Tests Test 11/29/20 18:25 11/29/20 18:30 Range/Units White Blood Count 10.3 4.3-11.0 10^3/uL Red Blood Count 4.56 3.80-5.11 10^6/uL Hemoglobin 13.6 11.5-16.0 g/dL Hematocrit 39 35-52 % Mean Corpuscular Volume 86 80-99 fL Mean Corpuscular Hemoglobin 30 25-34 pg Mean Corpuscular Hemoglobin Concent 35 32-36 g/dL Red Cell Distribution Width 11.9 10.0-14.5 % Platelet Count 268 130-400 10^3/uL Mean Platelet Volume 10.4 9.0-12.2 fL Immature Granulocyte % (Auto) 0 % Neutrophils (%) (Auto) 49 42-75 % Lymphocytes (%) (Auto) 39 12-44 % Monocytes (%) (Auto) 6 0-12 % Eosinophils (%) (Auto) 6 0-10 % Basophils (%) (Auto) 1 0-10 % Neutrophils # (Auto) 5.0 1.8-7.8 X 10^3 Lymphocytes # (Auto) 4.0 1.0-4.0 X 10^3 Monocytes # (Auto) 0.6 0.0-1.0 X 10^3 Eosinophils # (Auto) 0.6 H 0.0-0.3 10^3/uL Basophils # (Auto) 0.1 0.0-0.1 10^3/uL Immature Granulocyte # (Auto) 0.0 0.0-0.1 10^3/uL Sodium Level 139 135-145 MMOL/L Potassium Level 4.1 3.6-5.0 MMOL/L Chloride Level 104 98-107 MMOL/L Carbon Dioxide Level 25 21-32 MMOL/L Anion Gap 10 5-14 MMOL/L Blood Urea Nitrogen 11 7-18 MG/DL Creatinine 0.74 0.60-1.30 MG/DL Estimat Glomerular Filtration Rate 91 BUN/Creatinine Ratio 15 Glucose Level 99 70-105 MG/DL Calcium Level 8.9 8.5-10.1 MG/DL Corrected Calcium 8.5 8.5-10.1 MG/DL Total Bilirubin 0.2 0.1-1.0 MG/DL Aspartate Amino Transf (AST/SGOT) 15 5-34 U/L Alanine Aminotransferase (ALT/SGPT) 5 0-55 U/L Alkaline Phosphatase 85 40-136 U/L Total Protein 7.4 6.4-8.2 GM/DL Albumin 4.5 3.2-4.5 GM/DL Urine Color YELLOW Urine Clarity CLEAR Urine pH 7.5 5-9 Urine Specific [place] 1.015 L 1.016-1.022 Urine Protein NEGATIVE NEGATIVE Urine Glucose (UA) NEGATIVE NEGATIVE Urine Ketones NEGATIVE NEGATIVE Urine Nitrite NEGATIVE NEGATIVE Urine Bilirubin NEGATIVE NEGATIVE Urine Urobilinogen 0.2 < = 1.0 MG/DL Urine Leukocyte Esterase NEGATIVE NEGATIVE Urine RBC (Auto) TRACE-I H NEGATIVE Urine RBC 0-2 /HPF Urine WBC RARE /HPF Urine Squamous Epithelial Cells RARE /HPF Urine Crystals NONE /LPF Urine Bacteria NEGATIVE /HPF Urine Casts NONE /LPF Urine Mucus LARGE H /LPF Urine Culture Indicated NO My Orders Orders - JANAY GUTHRIE DO Cbc With Automated Diff (11/29/20 18:22) Comprehensive Metabolic Panel (11/29/20 18:22) Urinalysis (11/29/20 18:22) Urine Bedside (11/29/20 18:22) Ct Abdomen/Pelvis W (11/29/20 18:23) Iohexol Injection (Omnipaque 350 Mg/Ml 1 (11/29/20 18:45) Received Contrast (Hold Metformin- Contr (11/29/20 18:45) Sodium Chloride Flush (Catheter Flush Sy (11/29/20 18:45) Ns (Ivpb) (Sodium Chloride 0.9% Ivpb Bag (11/29/20 18:45) Medications Given in ED Current Medications Medications Dose Ordered Sig/Yael Route Start Time Stop Time Status Last Admin Dose Admin Iohexol 100 ml ONCE ONCE IV 11/29/20 18:45 11/29/20 18:46 DC 11/29/20 18:49 100 ML Sodium Chloride 10 ml NEEDED PRN IV 11/29/20 18:45 11/29/20 18:49 10 ML Sodium Chloride 100 ml ONCE ONCE IV 11/29/20 18:45 11/29/20 18:46 DC 11/29/20 18:49 100 ML Vital Signs/I&O 11/29/20 18:17 Temp 37.0 Pulse 90 Resp 17 B/P (MAP) 135/103 (114) O2 Delivery Room Air Capillary Refill : Departure Communication (Admissions) CT abdomen pelvis: Normal appendix, calcified uterine mass, calcified left adnexal mass consistent with dermoid. No inflammatory obstructive process per radiology report. Nondescript pelvic pain with normal appendix. Concern for possible ovarian cyst versus torsion versus nonspecific cause. Recommendations are for pelvic ultrasound. This is not available at this facility. I offered to transfer patient to a facility where ultrasound could be performed. She declines and prefers to follow-up with her [facility] on Wednesday. Explained to the patient possible diagnosis include ovarian cyst, torsion, and other unidentified cause of pelvic pain. She agrees to follow-up and return to the ED should she develop new or worsening symptoms in the interim. Impression Primary Impression: Pelvic pain in female Disposition: 01 HOME, SELF-CARE Condition: Stable Departure-Patient Inst. Decision time for Depature: 19:27 Referrals: TAJ DOMINGO DO (PCP) Primary Care Physician JOSE COOMBS APRN (Family) Primary Care Physician Patient Instructions: Pelvic Pain ED Add. Discharge Instructions: You were evaluated in the emergency department for pelvic pain. Lab and imaging were performed and are nondiagnostic. Please take Tylenol for pain and tramadol as needed for additional relief. Follow-up with Dr. Domingo on Wednesday for reevaluation and coordination of additional outpatient testing. In the meantime if you develop new or worsening symptoms, return to the emergency departmen. JANAY GUTHRIE DO Nov 29, 2020 18:23
[2020-11-29 18:44] LABS: HEMOGLOBIN 13.6 g/dL (11.5-16.0); MEAN CORPUSCULAR HEMOGLOBIN 30 pg (25-34); WHITE BLOOD COUNT 10.3 10^3/uL (4.3-11.0)
[2020-11-29 18:45] LABS: BILIRUBIN,URINE NEGATIVE (NEGATIVE); CLARITY,URINE CLEAR; COLOR,URINE YELLOW; GLUCOSE, URINE (UA) NEGATIVE (NEGATIVE); KETONES,URINE NEGATIVE (NEGATIVE); LEUKOCYTE ESTERASE ,URINE NEGATIVE (NEGATIVE); NITRITE,URINE NEGATIVE (NEGATIVE); PH,URINE 7.5 (5-9); PROTEIN,URINE NEGATIVE (NEGATIVE)
[2020-11-29 18:45] LABS: BASOPHILS % (AUTO) 1 % (0-10); EOSINOPHILS % (AUTO) 6 % (0-10); HEMATOCRIT 39 % (35-52); LYMPHOCYTES % (AUTO) 39 % (12-44); MEAN CORPUSCULAR HGB CONC 35 g/dL (32-36); MEAN CORPUSCULAR VOLUME 86 fL (80-99); MEAN PLATELET VOLUME 10.4 fL (9.0-12.2); MONOCYTES % (AUTO) 6 % (0-12); NEUTROPHILS % (AUTO) 49 % (42-75); PLATELET COUNT 268 10^3/uL (130-400)
[2020-11-29] MEDS ORDERED: HOLD METFORMIN - RECEIVED CONTRAST 20 ML VIAL IV SCH (18:45)
[2020-11-29] MEDS ORDERED: NS 100 ML (IVPB) BAG IV ONE (18:45)
[2020-11-29] MEDS ORDERED: IOHEXOL 350 MG/ML 100 ML (OMNIPAQUE 350) VIAL IV ONE (18:45)
[2020-11-29] MEDS ORDERED: CATHETER FLUSH 10 ML SYR IV PRN (18:45)
[2020-11-29 18:46] LABS: BASOPHILS # (AUTO) 0.1 10^3/uL (0.0-0.1); EOSINOPHILS # (AUTO) 0.6 10^3/uL (0.0-0.3); MONOCYTES # (AUTO) 0.6 X 10^3 (0.0-1.0)
[2020-11-29 18:52] LABS: BACTERIA,URINE NEGATIVE /HPF; RBC,URINE 0-2 /HPF; WBC,URINE RARE /HPF
[2020-11-29 18:53] LABS: SQUAMOUS EPITHELIAL CELL,UR RARE /HPF
[2020-11-29 18:58] LABS: ALBUMIN 4.5 GM/DL (3.2-4.5); BILIRUBIN,TOTAL 0.2 MG/DL (0.1-1.0); CALCIUM 8.9 MG/DL (8.5-10.1); CREATININE SERUM 0.74 MG/DL (0.60-1.30); POTASSIUM 4.1 MMOL/L (3.6-5.0); TOTAL PROTEIN 7.4 GM/DL (6.4-8.2)
--- NOTE | 2020-11-29 19:04 | Diagnostic Imaging Report ---
CT abdomen/pelvis w TECHNIQUE: Multiple contiguous axial images were obtained through the abdomen and pelvis after administration of intravenous contrast. All CT scans use one or more of the following dose optimizing techniques: automated exposure control, MA and/or KvP adjustment based on patient size and exam type or iterative reconstruction. INDICATION: Right lower quadrant pain. COMPARISON: None available. FINDINGS: Lower chest: The lung bases are clear. No pericardial or pleural effusion. Peritoneum: No free intraperitoneal air or fluid. Liver and biliary system: The liver is normal. The gallbladder is normal. No biliary duct dilation. Spleen and Pancreas: Spleen is normal. The pancreas enhances normally without mass lesion or peripancreatic inflammatory changes. Adrenals: Normal. tract: The kidneys enhance normally without suspicious mass or obstruction. Urinary bladder is distended without wall thickening. A 2.6 x 2.6 cm rim calcified mass within the posterior uterine body is most compatible with a fibroid. There is also a 1.2 x 1.2 cm dystrophic calcification in the region of the left ovary raising possibility of a dermoid tumor, although no soft tissue component is appreciated. GI tract: Stomach is decompressed. No bowel obstruction. No pericolonic inflammatory changes. Normal appendix. Vasculature and Lymph nodes: Normal caliber aorta. No abdominal or pelvic lymphadenopathy. Musculoskeletal: No concerning osseous lesion. IMPRESSION: 1. No acute obstructive or inflammatory process. The appendix is normal. 2. 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 3. Partially calcified intramural fibroid within the uterus. IUD is appropriately positioned. Dictated by: Dictated on workstation # [id number]
[2020-11-29] MEDS ORDERED: TRM50T PO (19:30)
[2020-11-29 19:38] VITALS: BP 135/103
== END 2020-11-29 19:39 | disposition home or self-care (01) ==
LOC: EDUNIT# 18:11 → ER FS 18:13
DX: R10.2 Pelvic and perineal pain (principal); E66.9 Obesity, unspecified; Z68.45 Body mass index [BMI] 70 or greater, adult; Z72.0 Tobacco use
CPT/HCPCS: 36415; 74177; 80053; 81000; 84703; 85025

== ENCOUNTER → 2022-09-08 | Outpatient (CLI) | payer BC ==
[~2022-09-08] MED LIST changes: +TRM50T PO
--- NOTE | 2022-09-09 17:44 | Diagnostic Imaging Report ---
INDICATION: Nontoxic multinodular goiter. TECHNIQUE: Patient was administered 220 uCi of I-123 and at 4 hours and 24-hours thyroid uptake, as well as a thyroid scan, was performed. The 4 hour uptake is 41%. 24-hour thyroid uptake is 76%. Thyroid scan demonstrates fairly homogeneous uptake of activity by both lobes of the thyroid gland. No hot or cold nodule is detected. IMPRESSION: Elevated 24-hour thyroid uptake of 76% with normal values 10-30%. Findings are consistent with hyperthyroidism. Dictated by: Dictated on workstation # [id number]
== END ==
LOC: CARD 10:52
PROVIDERS: ATTEND Student in an Organized Health Care Education/Training Program
DX: E04.2 Nontoxic multinodular goiter (principal)
CPT/HCPCS: 78014; A9516